=== PATIENT | female | born 1965 | race Caucasian/White ===

== ENCOUNTER 2021-01-09 23:34 | Emergency (ER) | payer SELFPAY ==
[2021-01-10] MEDS ORDERED: MORPHINE SULFATE 4 MG/ML SYR/VIAL IV ONE (01:45)
[2021-01-10] MEDS ORDERED: ONDANSETRON HCL 4 MG/2 ML VIAL IV ONE (01:45)
[2021-01-10] MEDS ORDERED: MIDAZOLAM HCL 5 MG/ML-1ML VIAL IV ONE ×2 (02:15→03:30)
[2021-01-10] MEDS ORDERED: fentaNYL CITRATE 100 MCG/2 ML VL IV ONE (02:15)
[2021-01-10] MEDS ORDERED: HYDROcodone-ACET 5/325MG TAB PO ONE (03:45)
[2021-01-10] MEDS: ONDANSETRON ODT 4 MG TAB PO ONE (03:45)
[2021-01-10] MEDS ORDERED: HYDROmorphone HCL 2 MG/ML VL IV ONE ×2 (04:30→05:45)
[2021-01-10 05:31] VITALS: BP 141/82
== END 2021-01-10 06:06 | disposition short-term general hospital (02) ==
LOC: ER 23:34
DX: S43.084A Other dislocation of right shoulder joint, initial encounter (principal); S42.291A Other displaced fracture of upper end of right humerus, initial encounter for closed fracture; I10 Essential (primary) hypertension; W01.198A Fall on same level from slipping, tripping and stumbling with subsequent striking against other object, initial encounter; Y93.89 Activity, other specified; Y92.89 Other specified places as the place of occurrence of the external cause; Y99.8 Other external cause status
CPT/HCPCS: 23650; 73020; 73030; 96374; 96375; 99152; 99285; J1170; J2270; J2405; J3010; Q0162; J2250